=== PATIENT | male | born 1950 | race Caucasian/White ===

== ENCOUNTER → 2020-05-18 | Outpatient (CLI) | payer MEDICARE ==
[~2020-05-18] MED LIST: ASPIR 8181 MG PO; COQ-10100 MG PO; DOCUSATE SODIU100 M1 PO; GARLIPURE600 MG PO; MAGNESIUM OXID400 MG PO; METOPROLOL SUCC25 MG PO; METOPROLOL SUCC50 MG PO; MULTI-VITAMIN1 EACH PO; NAC600 MG PO; NIASPAN500 MG PO; OMEPRAZOLE MAGN20 MG PO; SIMVASTATIN20 MG PO; VITAMIN D1000 UNI1 PO
--- NOTE | 2020-05-18 09:31 | Diagnostic Imaging Report ---
MRI SPINE CERVICAL WO HISTORY: Off balance, myelopathy, gait abnormality COMPARISON: Report from MRI of the cervical spine dated 07/03/2016 TECHNIQUE: Sagittal T1, sagittal T2, sagittal inversion recovery, axial T2, axial T2 GRE, and axial T1 weighted MR images of the cervical spine were obtained without intravenous contrast. DISCUSSION: ACDF changes from C3 to C5 are present. Hardware susceptibility and motion artifacts obscure some details. Alignment: Straightening of the cervical spine lordosis. No scoliosis. Vertebrae: No definite evidence for fractures, or neoplasm. Cervicomedullary junction: No abnormalities. Spinal cord: The ventral cord is mildly indented by disc osteophyte complexes on the right at C3-C4, and centrally at C5-C6. The cord is otherwise grossly normal in signal and morphology from the foramen magnum through T3-T4. Soft tissues: Focal nodular hypointensity in the left thyroid lobe could be due to a coarse calcification. Additional findings: Mild sphenoid sinus mucosal thickening. There is advanced disc degeneration at C5-C6 and C6-C7. There are nonspecific mild inflammatory endplate changes at C6-C7. C2-C3: Moderate canal stenosis due to posterior disc osteophyte complex and ligamentum flavum thickening. Mild left foraminal stenosis due to uncovertebral and facet arthrosis. No significant right foraminal stenosis. C3-C4: Moderate to severe canal stenosis due to posterior disc osteophyte complex, eccentric to the right, and ligamentum flavum thickening. Severe right and mild to moderate left foraminal stenoses due to uncovertebral and facet arthrosis. C4-C5: Moderate canal stenosis due to posterior disc osteophyte complex and ligamentum flavum thickening. Mild to moderate bilateral foraminal stenoses due to uncovertebral and facet arthrosis. C5-C6: Severe canal stenosis due to posterior disc osteophyte complex and ligamentum flavum thickening. Severe bilateral foraminal stenoses due to uncovertebral and facet arthrosis. C6-C7: Moderate canal stenosis due to posterior disc osteophyte complex and ligamentum flavum thickening. Severe bilateral foraminal stenoses due to uncovertebral and facet arthrosis. C7-T1: No significant canal or foraminal stenosis. IMPRESSION: 1. ACDF changes from C3 to C5. 2. Advanced disc degeneration at C5-C6 and C6-C7 with nonspecific mild inflammatory endplate changes at C6-C7. 3. Multilevel moderate to severe degenerative canal stenoses, most prominent at C3-C4 and C5-C6. The ventral cord is indented by disc osteophyte complexes on the right at C3-C4, and centrally at C5-C6. 4. Multilevel moderate to severe bilateral degenerative foraminal stenoses as described above. Signed by: Dr. Brent Loomis M.D. on 05/18/2020 9:28 AM
== END ==
LOC: MRI 08:08
PROVIDERS: ATTEND Student in an Organized Health Care Education/Training Program
DX: G95.9 Disease of spinal cord, unspecified (principal); R26.9 Unspecified abnormalities of gait and mobility
CPT/HCPCS: 72141